=== PATIENT | male | born 1945 | race Caucasian/White ===

== ENCOUNTER 2017-07-28 15:25 | Emergency (ER) | payer MEDICARE, OTHER ==
[2017-07-28] MEDS ORDERED: Lidocaine 2% with EPINEPHrine 1:200,000 20 ML SDV INJECT ONE (15:30)
[2017-07-28] MEDS ORDERED: Diphtheria,Pertussis(Acell),Tetanus Vaccine 0.5 ML SDV IM ONE (15:36)
--- NOTE | 2017-07-28 15:36 | EDM.PDOC ---
ED HPI GENERAL MEDICAL PROBLEM - General Time Seen by Provider: 07/28/17 15:26 Source of Information: Reports: Patient History Limitations: Reports: No Limitations - History of Present Illness INITIAL COMMENTS - FREE TEXT/NARRATIVE: Patient presents with laceration to head that occurred 30 minutes ago. 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 It made him fall to the floor of the lift but no LOC, vomiting, vision changes, balance changes or other problems. He thinks his tetanus status is probably . ED ROS GENERAL - Review of Systems Review Of Systems: See Below Constitutional: Denies: Fever, Chills, Malaise, Weakness HEENT: Denies: Ear Discharge, Ear Pain, Hearing Loss, Vision Change Respiratory: Denies: Shortness of Breath, Wheezing, Cough Cardiovascular: Denies: Chest Pain, Lightheadedness, Syncope GI/Abdominal: Denies: Abdominal Pain, Diarrhea, Nausea, Vomiting : Reports: No Symptoms Skin: Denies: Cyanosis, Jaundice, Mottled, Pallor, Diaphoresis Neurological: Denies: Confusion, Dizziness, Headache, Seizure, Syncope, Trouble Speaking, Difficulty Walking Psychiatric: Denies: Agitation, Anxiety, Confusion Hematologic/Lymphatic: Denies: Easy Bleeding ED EXAM, HEAD INJURY - Physical Exam Exam: See Below Exam Limited By: No Limitations General Appearance: Alert, WD/WN, No Apparent Distress Head: Scalp Lacerations (left parietal 7 cm). No: Scalp Swelling, Scalp Abrasions, Scalp Ecchymosis, Scalp Hematoma, Pulido's Sign, Facial Ecchymosis, Facial Lacerations, Raccoon Eyes Nexus Criteria: No: Posterior, Midline Cervical Tenderness, Evidence of Intoxication, Altered Level of Consciousness, Focal Neurological Deficit, Painful Distraction Injuries Eyes: Bilateral Eye: EOMI, Normal Inspection, PERRL Ears: Normal External Exam, Normal Canal, Hearing Grossly Normal, Normal TMs Nose: Normal Inspection, No Blood Throat/Mouth: Normal Inspection, Normal Lips, Normal Voice, No Airway Compromise Neck: Non-Tender, Full Range of Motion, Normal Alignment, Normal Inspection Respiratory: No Respiratory Distress, Lungs Clear, Normal Breath Sounds, No Accessory Muscle Use Cardiovascular: Regular Rate, Rhythm, No Murmur GI/Abdominal Exam: Soft, Non-Tender Back Exam: No: CVA Tenderness (L), CVA Tenderness (R) Extremities: Normal Inspection, Normal Range of Motion, Non-Tender Neurologic: wood flooring specialist II-XII nml As Tested, No Motor/Sensory Deficits, Alert, Normal Mood/Affect, Oriented x 3 Skin: Normal Color, Warm/Dry - Keila Coma Score Best Eye Response (Keila): (4) Open Spontaneously Best Verbal Response (Keila): (5) Oriented Best Motor Response (Monson): (6) Obeys Commands ED LACERATION/WOUND & ANDRES PROC - Laceration/Wound Repair Right Lateral Head Lac/wound length in cm: 7 Appearance: Subcutaneous, Linear, Clean Distal NVT: Neuro & Vascular Intact Anesthetic Type: Local Local Anesthesia - Lidocaine (Xylocaine): 2% with EPI Local Anesthetic Volume: 4cc Skin Prep: Providone-Iodine (Betadine), Saline Saline irrigation (cc's): 100 Exploration/Debridement/Repair: Wound Explored, Explored to Base Closed with: [place] # of Sutures: 13 Suture Type: Interrupted, Simple Sterile Dressing Applied: Nurse Tetanus Status Addressed: Yes Complications: No Departure - Departure Time of Disposition: 16:06 Disposition: Home, Self-Care 01 Condition: Good Clinical Impression: Laceration of scalp without foreign body Qualifiers: Encounter type: initial encounter Qualified Code(s): S01.01XA - Laceration without foreign body of scalp, initial encounter - Discharge Information Additional Instructions: 1. You may shower and shampoo scalp carefully as desired. Avoid submerging head in water such as pool or tub until janusz are removed. 2. Recheck JASON with your PCP or return to ER if worsening or any sign of infection. 3. Follow up with your PCP in 10-12 days for staple removal and recheck. 4. You may take Tylenol or Ibuprofen as instructed for pain control.
[2017-07-28] MEDS ORDERED: Lidocaine 2% with EPINEPHrine 1:200,000 20 ML SDV ONE (15:42)
== END 2017-07-28 16:20 | disposition home or self-care (01) ==
LOC: KA.ED 15:25
DX: S01.01XA Laceration without foreign body of scalp, initial encounter (principal); Z23 Encounter for immunization; W26.8XXA Contact with other sharp object(s), not elsewhere classified, initial encounter; Y99.0 Civilian activity done for income or pay
CPT/HCPCS: 12002; 90471; 90715; 99282; 99283

== ENCOUNTER 2019-02-08 13:25 | Inpatient (IN) | payer MEDICARE, OTHER ==
[2019-02-08] MEDS ORDERED: Sodium Chloride 0.9% 10 ML Syringe FLUSH PRN ×2 (13:37→15:27)
--- NOTE | 2019-02-08 13:50 | EDM.PDOC ---
ED HPI GENERAL MEDICAL PROBLEM - General Chief Complaint: Cardiovascular Problem Stated Complaint: POSSIBLY NEW ONSET AFIB Time Seen by Provider: 02/08/19 13:30 Source of Information: Reports: Patient History Limitations: Reports: No Limitations - History of Present Illness INITIAL COMMENTS - FREE TEXT/NARRATIVE: 73 YO WM presents to ER from clinic with complaints of intermittent episodes of shortness of breath and new onst A fib on EKG. Pt reports he has been more tired over the last 4 days and last night was having trouble sleeping and feeling short of breath. Pt denies experiencing any chest pain, but did notice some mild palpitations. Pt denies any recent illnesses. No fever/chills, no nausea/vomiting, no diaphoresis or lightheadedness. Pt reports he was previously taking losartan/hctz and amlodipine but stopped almost 1 year ago after having normal blood pressure readings. Onset Date: 02/07/19 Duration: Day(s): (2) Location: Reports: Chest Severity: Mild Improves with: Reports: Rest Worsens with: Reports: Breathing Associated Symptoms: Reports: Shortness of Breath - Related Data Allergies Allergy/AdvReac Type Severity Reaction Status Date / Time No Known Drug Allergies Allergy Other Verified 02/08/19 13:37 Home Meds: Home Meds Ibuprofen [Advil] 800 mg PO BEDTIME 02/08/19 [History] Past Medical History HEENT History: Reports: Impaired Vision Cardiovascular History: Reports: Hypertension Musculoskeletal History: Reports: Arthritis Social & Family History - Family History Family Medical History: Noncontributory - Caffeine Use Caffeine Use: Reports: Coffee ED ROS GENERAL - Review of Systems Review Of Systems: See Below Constitutional: Reports: No Symptoms HEENT: Reports: No Symptoms Respiratory: Reports: Shortness of Breath. Denies: Cough Cardiovascular: Reports: Palpitations, PND. Denies: Chest Pain, Blood Pressure Problem, Dyspnea on Exertion, Lightheadedness, Orthopnea, Syncope Endocrine: Reports: No Symptoms GI/Abdominal: Reports: No Symptoms : Reports: No Symptoms Musculoskeletal: Reports: No Symptoms Skin: Reports: No Symptoms Neurological: Reports: No Symptoms Psychiatric: Reports: No Symptoms Hematologic/Lymphatic: Reports: No Symptoms Immunologic: Reports: No Symptoms ED EXAM, GENERAL - Physical Exam Exam: See Below Exam Limited By: No Limitations General Appearance: Alert, WD/WN, No Apparent Distress Head: Atraumatic, Normocephalic Neck: Normal Inspection, Supple, Non-Tender, Full Range of Motion Respiratory/Chest: No Respiratory Distress, Lungs Clear, Normal Breath Sounds, No Accessory Muscle Use, Chest Non-Tender Cardiovascular: Normal Peripheral Pulses, No Edema, No Gallop, No JVD, No Murmur , No Rub, Irregularly Irregular GI/Abdominal: Normal Bowel Sounds, Soft, Non-Tender, No Organomegaly, No Distention, No Abnormal Bruit, No Mass Back Exam: Normal Inspection, Full Range of Motion, NT Extremities: Normal Inspection, Normal Range of Motion, Non-Tender, Normal Capillary Refill, No Pedal Edema Neurological: Alert, Oriented, CN II-XII Intact, Normal Cognition, Normal Gait, Normal Reflexes, No Motor/Sensory Deficits Psychiatric: Normal Affect, Normal Mood Skin Exam: Warm, Dry, Intact, Normal Color, No Rash Lymphatic: No Adenopathy EKG INTERPRETATION EKG Date: 02/08/19 Time: 13:34 Rhythm: A-Fib Rate (Beats/Min): 79 [place]: Normal P-Wave: Absent QRS: Normal ST-T: Normal QT: Normal Course - Vital Signs Last Recorded V/S: Last Vital Signs Temp 36.4 C 02/08/19 13:31 Pulse 94 02/08/19 13:31 Resp 19 02/08/19 13:31 BP 167/106 H 02/08/19 13:31 Pulse Ox 95 02/08/19 13:31 - Orders/Labs/Meds Orders: Active Orders 24 hr Category Date Time Status Cardiac Monitoring [RC] . DIRECTED Care 02/08/19 13:37 Ordered EKG Documentation Completion [RC] ASDIRECTED Care 02/08/19 13:38 Ordered Peripheral IV Care [RC] . DIRECTED Care 02/08/19 13:38 Ordered Sodium Chloride 0.9% [Saline Flush] Med 02/08/19 13:37 Ordered 10 ml FLUSH Q8HR PRN Peripheral IV Insertion Adult [OM.PC] Routine Oth 02/08/19 13:37 Ordered EKG 12 Lead [EK] Routine Ther 02/08/19 13:37 Ordered Medication Orders Sodium Chloride (Saline Flush) 10 ml FLUSH Q8HR PRN PRN Reason: keep vein open Labs: Laboratory Tests 02/08/19 02/08/19 Range/Units 13:40 13:40 WBC 6.54 (5.00-10.00) 10^3/uL RBC 4.47 L (4.50-6.00) 10^6/uL Hgb 14.0 (13.0-17.0) g/dL Hct 41.1 (40.0-52.0) % MCV 91.9 (82.0-92.0) fL MCH 31.3 H (27.0-31.0) pg MCHC 34.1 (32.0-36.0) g/dL RDW 13.0 (11.5-14.5) % Plt Count 221 (150-400) 10^3/uL MPV 9.2 (7.4-10.4) fL Immature Gran % (Auto) 0.3 (0.0-5.0) % Neut % (Auto) 79.8 H (50.0-70.0) % Lymph % (Auto) 12.1 L (20.0-40.0) % Person % (Auto) 6.7 (2.0-8.0) % Eos % (Auto) 0.6 L (1.0-3.0) % Baso % (Auto) 0.5 (0.0-1.0) % Immature Gran # (Auto) 0.02 (0.00-0.50) 10^3/uL Neut # (Auto) 5.22 (2.50-7.00) 10^3/uL Lymph # (Auto) 0.79 L (1.00-4.00) 10^3/uL Person # (Auto) 0.44 (0.10-0.80) 10^3/uL Eos # (Auto) 0.04 L (0.10-0.30) 10^3/uL Baso # (Auto) 0.03 (0.00-0.10) 10^3/uL Sodium 143 (136-145) mmol/L Potassium 4.0 (3.3-5.3) mmol/L Chloride 107 (98-115) mmol/L Carbon Dioxide 24.2 (21.0-32.0) mmol/L Anion Gap 15.8 H (5-15) mmol/L BUN 15 (6-25) mg/dL Creatinine 0.95 (0.51-1.17) mg/dL Est Cr Clr Drug Dosing 79.43 mL/min Estimated GFR (MDRD) > 60 mL/min Glucose 103 H (75 - 99) mg/dL Calcium 9.3 (8.7-10.3) mg/dL Total Bilirubin 0.7 (0.2-1.0) mg/dL AST 25 (15-37) U/L ALT 49 (12-78) U/L Alkaline Phosphatase 92 (46-116) IU/L Creatine Kinase 126 (26-276) U/L CK-MB (CK-2) 5.20 H* (0.00-4.30) ng/mL Troponin I 0.08 H* (0.00-0.070) ng/mL B-Natriuretic Peptide 914 H (0-100) pg/mL Total Protein 6.5 (6.4-8.2) g/dL Albumin 3.54 (3.00-4.80) g/dL Meds: Medications Generic Name Dose Route Start Last Admin Trade Name Freq PRN Reason Stop Dose Admin Sodium Chloride 10 ml 02/08/19 13:37 Saline Flush FLUSH Q8HR PRN keep vein open Discontinued Medications Generic Name Dose Route Start Last Admin Trade Name Freq PRN Reason Stop Dose Admin Aspirin 324 mg 02/08/19 14:27 Aspirin PO 02/08/19 14:28 ONETIME ONE Furosemide 40 mg 02/08/19 14:27 Lasix IVPUSH 02/08/19 14:28 NOW ONE Nitroglycerin 1 gm 02/08/19 14:27 Nitro-Bid 2% TOP 02/08/19 14:28 ONETIME ONE - Radiology Interpretation Free Text/Narrative:: CXR- mild CHF, CM Departure - Departure Time of Disposition: 15:00 Disposition: Admitted As Inpatient 67 Condition: Fair Clinical Impression: New onset atrial fibrillation, Elevated troponin I level Congestive heart failure (CHF) Qualifiers: Heart failure chronicity: acute Referrals: PCP,Unknown [Ordering Only Provider] - Forms: ED Department Discharge - My Orders Last 24 Hours: My Active Orders 02/08/19 13:37 Cardiac Monitoring [RC] . DIRECTED Sodium Chloride 0.9% [Saline Flush] 10 ml FLUSH Q8HR PRN Peripheral IV Insertion Adult [OM.PC] Routine EKG 12 Lead [EK] Routine 02/08/19 13:38 EKG Documentation Completion [RC] ASDIRECTED Peripheral IV Care [RC] . DIRECTED - Assessment/Plan Last 24 Hours: My Active Orders 02/08/19 13:37 Cardiac Monitoring [RC] . DIRECTED Sodium Chloride 0.9% [Saline Flush] 10 ml FLUSH Q8HR PRN Peripheral IV Insertion Adult [OM.PC] Routine EKG 12 Lead [EK] Routine 02/08/19 13:38 EKG Documentation Completion [RC] ASDIRECTED Peripheral IV Care [RC] . DIRECTED Assessment:: 1. New onset Atrial Fibrillation 2. Mild CHF Plan: 1. admit to medicine- [facility] ERVIN 2. Nitro/ASA 3. lasix 40mg IV 4. serial Trop I Q4 x 3
--- NOTE | 2019-02-08 14:14 | CR ---
[id number] RAD/RAD Chest PA And Lateral EXAM: FRONTAL AND LATERAL CHEST INDICATION: RULE OUT CONGESTIVE HEART FAILURE. COMPARISON: None. DISCUSSION: Mild cardiomegaly with borderline central vascular congestion and small pleural effusions compatible with congestive heart failure. Partial atelectasis of the lower lobes with no definite infiltrates. Partially imaged fixation hardware in the left humerus. Vertebral compression fracture at the thoracolumbar junction. IMPRESSION: 1. Mild congestive heart failure. Loi Orr MD 02/08/19 [id number] Thank you for allowing us to participate in the care of your patient.
[2019-02-08 14:19] LABS: ANION GAP 15.8 mmol/L (5-15); CHLORIDE,CL 107 mmol/L (98-115); SODIUM,NA 143 mmol/L (136-145)
[2019-02-08] MEDS ORDERED: Aspirin 81 MG Tab.Chew PO ONE (14:27)
[2019-02-08] MEDS ORDERED: Nitroglycerin 2% Oint 1 GM UD Packet TOP ONE (14:27)
[2019-02-08] MEDS ORDERED: Furosemide 40 MG/4 ML VIAL IVPUSH ONE (14:27)
[2019-02-08] MEDS ORDERED: Metoprolol Tartrate 50 MG Tab PO ONE (15:59)
[2019-02-08] MEDS ORDERED: Metoprolol Tartrate 5 MG/5 ML SDV IVPUSH ONE ×4 (16:05→16:24)
[2019-02-08] MEDS ORDERED: Enoxaparin 100 MG/1 ML Syringe SUBCUT SCH (17:00)
[2019-02-08] MEDS: Isosorbide Mononitrate 30 MG Tab.ER PO SCH (17:10)
[2019-02-08] MEDS: Rivaroxaban 10 MG Tab PO SCH (18:12)
[2019-02-08] MEDS: Metoprolol Tartrate 50 MG Tab PO SCH (21:27)
[2019-02-09 08:04] LABS: ANION GAP 15.8 mmol/L (5-15); CHLORIDE,CL 105 mmol/L (98-115); SODIUM,NA 142 mmol/L (136-145)
[2019-02-09] MEDS: Isosorbide Mononitrate 30 MG Tab.ER PO SCH (08:46)
[2019-02-09] MEDS: Metoprolol Tartrate 50 MG Tab PO SCH ×2 (08:47→21:00)
--- NOTE | 2019-02-09 10:00 | PCM.HP.2 ---
H&P History of Present Illness - General Date of Service: 02/09/19 Admit Problem/Dx: Admission Diagnosis/Problem Admission Diagnosis/Problem Congestive heart failure Source of Information: Patient, Old Records, Provider, RN History Limitations: Reports: No Limitations - History of Present Illness Initial Comments - Free Text/Narative: 73 gentleman was admitted yesterday into inpatient status due to new onset atrial fibrillation with dyspnea. She was seen and evaluated [facility] by Lexy santana when he came in due to shortness of breath when lying down/ PND evening. Patient does have a history of hypertension had been on triple BP meds however has slowly been weaned off over this past year due to normotensive levels. Pt reports he has been more tired over the last 4 days and last night was having trouble sleeping and feeling short of breath. ED evaluation he denied any chest pain however does admit to some mild palpitations especially into his anterior neck region. No recent illness. - Related Data Allergies/Adverse Reactions: Allergies Allergy/AdvReac Type Severity Reaction Status Date / Time No Known Drug Allergies Allergy Other Verified 02/08/19 13:37 Home Medications: Home Meds Ibuprofen [Advil] 800 mg PO BEDTIME 02/08/19 [History] Past Medical History HEENT History: Reports: Impaired Vision Cardiovascular History: Reports: High Cholesterol, Hypertension Respiratory History: Reports: None Gastrointestinal History: Reports: None Genitourinary History: Reports: None Musculoskeletal History: Reports: Arthritis Neurological History: Reports: None Psychiatric History: Reports: None Endocrine/Metabolic History: Reports: None Hematologic History: Reports: Anesthesia Reaction, Other (See Below) Other Hematologic History: Difficulty arousing after anesthesia Immunologic History: Reports: None Oncologic (Cancer) History: Reports: None Dermatologic History: Reports: Other (See Below) Other Dermatologic History: Lower back rash - Infectious Disease History Infectious Disease History: Reports: None - Past Surgical History Head Surgeries/Procedures: Reports: None HEENT Surgical History: Reports: None Cardiovascular Surgical History: Reports: None GI Surgical History: Reports: Appendectomy, Cholecystectomy, Hernia, Inguinal Male Surgical History: Reports: None Endocrine Surgical History: Reports: None Other Musculoskeletal Surgeries/Procedures:: wrist and left arm surgery (fell 14 feet) Oncologic Surgical History: Reports: None Dermatological Surgical History: Reports: Skin Biopsy Social & Family History - Tobacco Use Smoking Status *Q: Never Smoker Second Hand Smoke Exposure: No - Caffeine Use Caffeine Use: Reports: Coffee - Alcohol Use Date of Last Drink: 02/07/19 - Recreational Drug Use Recreational Drug Use: No H&P Review of Systems - Review of Systems: Review Of Systems: See Below General: Reports: No Symptoms HEENT: Reports: No Symptoms Pulmonary: Reports: Shortness of Breath. Denies: Wheezing, Pleuritic Chest Pain , Cough, Sputum Cardiovascular: Reports: Palpitations, Dyspnea on Exertion Gastrointestinal: Reports: No Symptoms Genitourinary: Reports: No Symptoms Musculoskeletal: Reports: No Symptoms Skin: Reports: No Symptoms Psychiatric: Reports: No Symptoms Neurological: Reports: No Symptoms Hematologic/Lymphatic: Reports: No Symptoms Immunologic: Reports: No Symptoms Exam - Exam Exam: See Below - Vital Signs Vital Signs: Last Vital Signs Temp 98.6 F 02/09/19 06:54 Pulse 76 02/09/19 08:47 Resp 20 02/09/19 06:54 BP 125/70 02/09/19 08:47 Pulse Ox 95 02/09/19 06:54 Weight: 179 lb 3 oz - Exam Quality Assessment: Supplemental Oxygen, DVT Prophylaxis (cross covered) General: Alert, Oriented, 4 HEENT: Conjunctiva Clear, EACs Clear, EOMI, Hearing Intact, Mucosa Moist & [place] , Nares Patent, Normal Nasal Septum, Posterior Pharynx Clear, TMs Clear Neck: Supple, Trachea Midline, 2 Lungs: Clear to Auscultation, Normal Respiratory Effort Cardiovascular: Regular Rate, Irregular Rhythm. No: Bradycardia, Tachycardia GI/Abdominal Exam: Normal Bowel Sounds, Soft, Non-Tender, No Organomegaly, No Distention, No Abnormal Bruit, No Mass, Pelvis Stable (Male) Exam: No: Deferred Rectal (Males) Exam: No: Deferred Back Exam: No: CVA Tenderness (L) Extremities: No Pedal Edema Peripheral Pulses: 2+: Radial (R), Femoral (L) Skin: Warm, Dry, Intact Neurological: Cranial Nerves Intact, Reflexes Equal Bilateral Neuro Extensive - Mental Status: Alert, Oriented x3, Normal Mood/Affect, Normal Cognition Neuro Extensive - Motor, Sensory, Reflexes: CN II-XII Intact, Normal Gait, Normal Reflexes Psychiatric: Alert, Normal Affect, Normal Mood - Patient Data Lab Results Last 24 hrs: Laboratory Results - last 24 hr 11/13/19 11/13/19 11/13/19 Range/Units 13:40 13:40 19:57 WBC 6.54 (5.00-10.00) 10^3/uL RBC 4.47 L (4.50-6.00) 10^6/uL Hgb 14.0 (13.0-17.0) g/dL Hct 41.1 (40.0-52.0) % MCV 91.9 (82.0-92.0) fL MCH 31.3 H (27.0-31.0) pg MCHC 34.1 (32.0-36.0) g/dL RDW 13.0 (11.5-14.5) % Plt Count 221 (150-400) 10^3/uL MPV 9.2 (7.4-10.4) fL Immature Gran % (Auto) 0.3 (0.0-5.0) % Neut % (Auto) 79.8 H (50.0-70.0) % Lymph % (Auto) 12.1 L (20.0-40.0) % [place] % (Auto) 6.7 (2.0-8.0) % Eos % (Auto) 0.6 L (1.0-3.0) % Baso % (Auto) 0.5 (0.0-1.0) % Immature Gran # (Auto) 0.02 (0.00-0.50) 10^3/uL Neut # (Auto) 5.22 (2.50-7.00) 10^3/uL Lymph # (Auto) 0.79 L (1.00-4.00) 10^3/uL [place] # (Auto) 0.44 (0.10-0.80) 10^3/uL Eos # (Auto) 0.04 L (0.10-0.30) 10^3/uL Baso # (Auto) 0.03 (0.00-0.10) 10^3/uL Sodium 143 (136-145) mmol/L Potassium 4.0 (3.3-5.3) mmol/L Chloride 107 (98-115) mmol/L Carbon Dioxide 24.2 (21.0-32.0) mmol/L Anion Gap 15.8 H (5-15) mmol/L BUN 15 (6-25) mg/dL Creatinine 0.95 (0.51-1.17) mg/dL Est Cr Clr Drug Dosing 79.43 mL/min Estimated GFR (MDRD) > 60 mL/min Glucose 103 H (75 - 99) mg/dL Calcium 9.3 (8.7-10.3) mg/dL Total Bilirubin 0.7 (0.2-1.0) mg/dL AST 25 (15-37) U/L ALT 49 (12-78) U/L Alkaline Phosphatase 92 (46-116) IU/L Creatine Kinase 126 (26-276) U/L CK-MB (CK-2) 5.20 H* (0.00-4.30) ng/mL Troponin I 0.08 H* 0.10 H* (0.00-0.070) ng/mL B-Natriuretic Peptide 914 H (0-100) pg/mL Total Protein 6.5 (6.4-8.2) g/dL Albumin 3.54 (3.00-4.80) g/dL 02/09/19 Range/Units 07:25 WBC (5.00-10.00) 10^3/uL RBC (4.50-6.00) 10^6/uL Hgb (13.0-17.0) g/dL Hct (40.0-52.0) % MCV (82.0-92.0) fL MCH (27.0-31.0) pg MCHC (32.0-36.0) g/dL RDW (11.5-14.5) % Plt Count (150-400) 10^3/uL MPV (7.4-10.4) fL Immature Gran % (Auto) (0.0-5.0) % Neut % (Auto) (50.0-70.0) % Lymph % (Auto) (20.0-40.0) % [place] % (Auto) (2.0-8.0) % Eos % (Auto) (1.0-3.0) % Baso % (Auto) (0.0-1.0) % Immature Gran # (Auto) (0.00-0.50) 10^3/uL Neut # (Auto) (2.50-7.00) 10^3/uL Lymph # (Auto) (1.00-4.00) 10^3/uL [place] # (Auto) (0.10-0.80) 10^3/uL Eos # (Auto) (0.10-0.30) 10^3/uL Baso # (Auto) (0.00-0.10) 10^3/uL Sodium 142 (136-145) mmol/L Potassium 4.2 (3.3-5.3) mmol/L Chloride 105 (98-115) mmol/L Carbon Dioxide 25.4 (21.0-32.0) mmol/L Anion Gap 15.8 H (5-15) mmol/L BUN 15 (6-25) mg/dL Creatinine 1.00 (0.51-1.17) mg/dL Est Cr Clr Drug Dosing 75.46 mL/min Estimated GFR (MDRD) > 60 mL/min Glucose 108 H (75 - 99) mg/dL Calcium 9.3 (8.7-10.3) mg/dL Total Bilirubin (0.2-1.0) mg/dL AST (15-37) U/L ALT (12-78) U/L Alkaline Phosphatase (46-116) IU/L Creatine Kinase (26-276) U/L CK-MB (CK-2) (0.00-4.30) ng/mL Troponin I 0.08 H* (0.00-0.070) ng/mL B-Natriuretic Peptide (0-100) pg/mL Total Protein (6.4-8.2) g/dL Albumin (3.00-4.80) g/dL Result Diagrams: 02/08/19 13:40 02/09/19 07:25 Problem List Initiated/Reviewed/Updated: Yes Orders Last 24hrs: Active Orders 24 hr Category Date Time Status Patient Status [ADT] Routine ADT 02/08/19 15:28 Active Patient Status [ADT] Routine ADT 02/08/19 17:27 Active Cardiac Monitoring [RC] 0300,0700,1100,1500,1900,2300 Care 02/08/19 13:37 Active Cardiac Monitoring [RC] CONTINUOUS Care 02/08/19 17:27 Inactive Intake and Output [RC] 1400,2200,0600 Care 02/08/19 15:31 Active Notify Provider Vital Signs [RC] .PRN Care 02/08/19 15:31 Active Oxygen Therapy [RC] PRN Care 02/08/19 15:28 Active Oxygen Therapy [RC] PRN Care 02/08/19 17:27 Inactive Up ad Perla [RC] ASDIRECTED Care 02/08/19 17:27 Active Up to Chair [RC] ASDIRECTED Care 02/08/19 15:27 Active VTE/DVT Education [RC] PER UNIT ROUTINE Care 02/08/19 15:28 Active VTE/DVT Education [RC] PER UNIT ROUTINE Care 02/08/19 17:27 Inactive Vital Signs [RC] 0300,0700,1100,1500,1900,2300 Care 02/08/19 15:28 Active Vital Signs [RC] Q4H Care 02/08/19 17:27 Inactive Isosorbide Mononitrate [Imdur] Med 02/08/19 16:15 Active 30 mg PO DAILY Metoprolol Tartrate [Lopressor] Med 02/08/19 21:00 Active 50 mg PO BID Rivaroxaban [Xarelto] Med 02/08/19 18:00 Active 20 mg PO 1800 Sodium Chloride 0.9% [Saline Flush] Med 02/08/19 15:27 Active 10 ml FLUSH Q8HR PRN Peripheral IV Insertion Adult [OM.PC] Routine Oth 02/08/19 13:37 Ordered Saline Lock Insert [OM.PC] Routine Oth 02/08/19 15:27 Ordered Resuscitation Status Routine Resus Stat 02/08/19 15:04 Ordered EKG 12 Lead [EK] Routine Ther 02/08/19 13:37 Stop Req Medication Orders Isosorbide Mononitrate (Imdur) 30 mg PO DAILY [facility] Last Admin: 02/09/19 08:46 Dose: 30 mg Admin: 02/08/19 17:10 Dose: 30 mg Metoprolol Tartrate (Lopressor) 50 mg PO BID [facility] Last Admin: 02/09/19 08:47 Dose: 50 mg Admin: 02/08/19 21:27 Dose: 50 mg Rivaroxaban (Xarelto) 20 mg PO 1800 [facility] Last Admin: 02/08/19 18:12 Dose: 20 mg Sodium Chloride (Saline Flush) 10 ml FLUSH Q8HR PRN PRN Reason: keep vein open Assessment/Plan Comment:: History of present illness 73 gentleman was admitted yesterday into inpatient status due to new onset atrial fibrillation with dyspnea. She was seen and evaluated [facility] by Lexy santana when he came in due to shortness of breath when lying down/ PND evening. Patient does have a history of hypertension had been on triple BP meds however has slowly been weaned off over this past year due to normotensive levels. Pt reports he has been more tired over the last 4 days and last night was having trouble sleeping and feeling short of breath. ED evaluation he denied any chest pain however does admit to some mild palpitations especially into his anterior neck region. No recent illness. ED evaluation/pertinent findings Atrial fibrillation, regular rate Slightly elevated cardio biomarkers Chest x-ray, mild CHF picture ASA Lasix BP; 167\106 BNP >900, Hospital course to date Very soon after admission nurses reported elevated blood pressure 167/106, metoprolol tartrate IV titrated doses given, factor X A inhibitor given, Imdur, Primary hospital problems --Atrial fibrillation, new onset, [id number], CVR, Factor Xa, rate control strategy for now, Cont with Metoprolol tartrate 50mg BID for now, may consider digoxin after ECHO. DC NSAIDS --NSTEMI, type 2/ischemic demand, CRUZ 3/9, CAD pretest probability moderate. Aspirin until discharge --Heart failure, clinical signs, op ECHO, start low dose ACEI today, ECHO as o/p , lasix today x 1. Imdur --HTN, contributory Disposition, overall plan, discharge planning --Patient meets continue inpatient stay secondary to medication education, adjustments, telemetry monitoring --traffic monitor specialist for breakthrough rate --pt/INR --Oral metoprolol tartrate --DC NSAIDS, add Tylenol arthritis --add low-dose CHACHO inhibitor --Preload reduction, Imdur --Lasix today --Patient teaching, medications. --Assess pneumococcal/influenza vaccination status --Anticipate discharge in a.m. if ongoing hemodynamic stability. - Mortality Measure Prognosis:: Good
[2019-02-09] MEDS ORDERED: Acetaminophen 650 MG Tab.ER PO PRN (10:38)
[2019-02-09] MEDS: Lisinopril 5 MG Tab PO SCH (11:03)
[2019-02-09] MEDS: Furosemide 20 MG Tab PO SCH (11:03)
[2019-02-09] MEDS: Aspirin 81 MG Tab.EC PO SCH (11:03)
[2019-02-09] MEDS: Rivaroxaban 10 MG Tab PO SCH (17:46)
[2019-02-10] MEDS: Lisinopril 5 MG Tab PO SCH (09:05)
[2019-02-10] MEDS: Aspirin 81 MG Tab.EC PO SCH (09:05)
[2019-02-10] MEDS: Furosemide 20 MG Tab PO SCH (09:05)
[2019-02-10] MEDS: Metoprolol Tartrate 50 MG Tab PO SCH (09:09)
[2019-02-10] MEDS: Isosorbide Mononitrate 30 MG Tab.ER PO SCH (09:09)
[2019-02-10 10:50] LABS: ANION GAP 15.7 mmol/L (5-15); CHLORIDE,CL 106 mmol/L (98-115); SODIUM,NA 142 mmol/L (136-145)
--- NOTE | 2019-02-10 10:56 | PCM.DCSUM1 ---
Discharge Summary - Discharge Data Discharge Date: 02/10/19 Discharge Disposition: Home, Self-Care 01 Condition: Good - Referral to Home Health Primary Care Physician: Malena Ross NP - Patient Instructions Diet: Heart Healthy Diet Activity: As Tolerated, Rest and Relax Today Showering/Bathing: May Shower Other/Special Instructions: Weigh yourself at home every day. If you notice an increase in weight of 2-3 pounds in 2 days please notify your primary care provider. Please obtain a blood pressure cuff for at home if you're able. If you feel lightheaded or dizzy, take your blood pressure and write this down. If the blood pressure is less than 100 on the top, don't take the lasix (furosemide ) for the day. You will be set up for an outpatient ECHO (ultrasound of the heart) at [facility]. You have been referred to the [facility] anticoagulation clinic to help monitor the use of xarelto (rivaroxaban). DO NOT USE NSAIDs (this includes aleve, ibuprofen, motrin, naproxen) while on xarelto. You may use tylenol as needed for pain. No more than 3000 mg per day. - Discharge Plan *PRESCRIPTION DRUG MONITORING PROGRAM REVIEWED*: Not Applicable *COPY OF PRESCRIPTION DRUG MONITORING REPORT IN PATIENT JACINTA: Not Applicable Prescriptions/Med Rec: Furosemide [Lasix] 20 mg PO DAILY #30 tablet Lisinopril [Prinivil] 5 mg PO DAILY #30 tablet Metoprolol Tartrate [Lopressor] 50 mg PO BID #60 tablet Rivaroxaban [Xarelto] 20 mg PO 1800 #90 tablet Home Medications: Home Meds Furosemide [Lasix] 20 mg PO DAILY #30 tablet 02/10/19 [Rx] Lisinopril [Prinivil] 5 mg PO DAILY #30 tablet 02/10/19 [Rx] Metoprolol Tartrate [Lopressor] 50 mg PO BID #60 tablet 02/10/19 [Rx] Rivaroxaban [Xarelto] 20 mg PO 1800 #90 tablet 02/10/19 [Rx] Referrals: Malena Ross, MANAGER DEPARTMENT [Primary Care Provider] - 02/13/19 2:00 pm (ECHO appointment for February 20 at 1100am at the [facility]) - Discharge Summary/Plan Comment DC Time >30 min.: Yes Discharge Summary/Plan Comment: Date of admission: 02/08/19 Date of discharge: 02/10/19 Admitting diagnosis: Primary: New onset atrial fibrillation, Type 2 NSTEMI, Acute heart failure ( unspecified), Essential HTN Secondary: GERD, OA of multiple sites Final diagnosis: Primary: New onset atrial fibrillation, Type 2 NSTEMI, Acute heart failure ( unspecified), Essential HTN Secondary: GERD, OA of multiple sites Procedures performed: None Brief History: This is a 73 yo male who initially presented to the [facility] [place] with concerns of dyspnea while laying down the night prior. Patient was noted to have new onset atrial fibrillation on EKG along with significant ischemic changes in leads V4 and V5 and QTc prolongation of 504 ms. Given the limited diagnostics available in outlying clinic patient was transferred to the ED. ED work-up revealed mild CHF on CXR, troponin 0.08, BNP 914, atrial fibrillation with regular rate on EKG, BP 167/106. He was subsequently admitted for further treatment and monitoring. Hospital Course: Shortly after admission to the inpatient floor, patient required IV lopressor to control his blood pressure. He was also started on factor XA inhibitor, lasix, ACEI and Imdur SR. He was monitored with telemetry. Pulse ranged from 55 bpm to low 100s with improvement noted in blood pressure. Patient was provided with provider and nurse led education about new diagnoses of atrial fibrillation and CHF along with information on the new medications. Labs (02/09/19): PT 11.4 INR 1.1 Troponin 0.08 (02/10/19): TSH 1.34 Mg 1.8 K 4.1 Na 142 Creatinine 0.96 New medications on discharge: -Xarelto 20 mg po at 1800 -Lopressor 50 mg po BID -Lisinopril 5 mg po daily -Lasix 20 mg po daily (hold if systolic BP 100 or less) -Tylenol arthritis 650 mg po q8h PRN New changes to home medications on discharge: -DC NSAIDs Regular home medications on discharge: None Condition, Treatment, & Final Disposition: The patient is in stable condition at the time of discharge. He will be discharged home with his and sister. He will have close follow-up in the clinic with DAVID Cordero on 02/13/19 at which time he should have re-evaluation of his electrolytes given the new start of lasix. He will be scheduled for an outpatient ECHO for further evaluation. He was referred to the [facility] for help in monitoring his Xarelto. - General Info Date of Service: 02/10/19 Functional Status: Reports: Tolerating Diet, Ambulating, Urinating. Denies: New Symptoms - Review of Systems General: Reports: Fatigue. Denies: Fever, Chills HEENT: Reports: Glasses. Denies: Headaches Pulmonary: Reports: Shortness of Breath (with laying down/exertion). Denies: Cough Cardiovascular: Reports: Dyspnea on Exertion, PND. Denies: Chest Pain, Palpitations, Edema, Lightheadedness Genitourinary: Reports: Other (bruised area to right testicle that is painful) Neurological: Denies: Dizziness, Headache Psychiatric: Reports: No Symptoms - Patient Data Vitals - Most Recent: Last Vital Signs Temp 96.8 F 02/10/19 06:19 Pulse 89 02/10/19 09:09 Resp 18 02/10/19 06:19 BP 150/82 H 02/10/19 09:09 Pulse Ox 95 02/10/19 06:19 Weight - Most Recent: 176 lb 4 oz I&O - Last 24 hours: Intake & Output 02/09/19 02/10/19 02/10/19 22:59 06:59 14:59 Intake Total 350 0 Output Total 1200 Balance 350 -1200 Lab Results - Last 24 hrs: Laboratory Results - last 24 hr 02/09/19 02/10/19 02/10/19 Range/Units 07:25 08:30 08:30 PT 11.4 (8.9-11.4) SEC INR 1.1 (0.9-1.1) Magnesium 1.8 (1.8-2.4) mg/dL TSH, Ultra Sensitive 1.340 (0.340-4.820) uIU/mL Med Orders - Current: Current Medications Acetaminophen (Tylenol Arthritis Pain) 1,300 mg PO Q8H PRN PRN Reason: Pain Last Admin: 02/09/19 12:38 Dose: 1,300 mg Aspirin (Halfprin) 81 mg PO WITHBREAKFAST KEN Last Admin: 02/10/19 09:05 Dose: 81 mg Furosemide (Lasix) 20 mg PO DAILY KEN Last Admin: 02/10/19 09:05 Dose: 20 mg Isosorbide Mononitrate (Imdur) 30 mg PO DAILY [facility] Last Admin: 02/10/19 09:09 Dose: 30 mg Lisinopril (Prinivil) 5 mg PO DAILY [facility] Last Admin: 02/10/19 09:05 Dose: 5 mg Metoprolol Tartrate (Lopressor) 50 mg PO BID [facility] Last Admin: 02/10/19 09:09 Dose: 50 mg Rivaroxaban (Xarelto) 20 mg PO 1800 [facility] Last Admin: 02/09/19 17:46 Dose: 20 mg Sodium Chloride (Saline Flush) 10 ml FLUSH Q8HR PRN PRN Reason: keep vein open Discontinued Medications Aspirin (Aspirin) 324 mg PO ONETIME ONE Stop: 02/08/19 14:28 Last Admin: 02/08/19 14:46 Dose: 324 mg Enoxaparin Sodium (Lovenox) 80 mg SUBCUT Q12H [facility] Furosemide (Lasix) 40 mg IVPUSH NOW ONE Stop: 02/08/19 14:28 Last Admin: 02/08/19 14:49 Dose: 40 mg Metoprolol Tartrate (Lopressor) 50 mg PO ONETIME ONE Stop: 02/08/19 16:00 Last Admin: 02/08/19 16:57 Dose: 50 mg Metoprolol Tartrate (Lopressor) 5 mg IVPUSH ONETIME ONE Stop: 02/08/19 16:11 Metoprolol Tartrate (Lopressor) 5 mg IVPUSH ONETIME ONE Stop: 02/08/19 16:18 Last Admin: 02/08/19 16:38 Dose: 5 mg Metoprolol Tartrate (Lopressor) 5 mg IVPUSH ONETIME ONE Stop: 02/08/19 16:06 Last Admin: 02/08/19 16:20 Dose: 5 mg Metoprolol Tartrate (Lopressor) 5 mg IVPUSH ONETIME ONE Stop: 02/08/19 16:25 Last Admin: 02/08/19 16:47 Dose: 5 mg Nitroglycerin (Nitro-Bid 2%) 1 gm TOP ONETIME ONE Stop: 02/08/19 14:28 Last Admin: 02/08/19 14:47 Dose: 1 gm Sodium Chloride (Saline Flush) 10 ml FLUSH Q8HR PRN PRN Reason: keep vein open Last Admin: 02/08/19 14:53 Dose: 10 ml - Exam Quality Assessment: Reports: DVT Prophylaxis (on xarelto/aspirin). Denies: Supplemental Oxygen, Urine Catheter General: Reports: Alert, Oriented, Cooperative, No Acute Distress Lungs: Reports: Clear to Auscultation, Normal Respiratory Effort Cardiovascular: Reports: Regular Rate, No Murmurs, Irregular Rhythm (Male) Exam: Testicular Tenderness (R) (faint pen tip sized ecchymotic area to right testicle, tender, no erythema/edema). No: Penile Lesions, Scrotal Swelling, Testicular Mass, Testicular Tenderness (L) Extremities: Other (trace edema to BLE) Skin: Reports: Warm, Dry, Intact Neurological: Reports: Normal Speech Psy/Mental Status: Reports: Alert, Normal Affect, Normal Mood
== END 2019-02-10 11:40 | disposition home or self-care (01) | DRG 282 ==
LOC: KA.ED 13:25 → KA.MS 15:28
PROVIDERS: ADMIT Nurse Practitioner Family; ATTEND Nurse Practitioner Family
DX: I48.91 Unspecified atrial fibrillation (principal); I21.A1 Myocardial infarction type 2; I50.9 Heart failure, unspecified; R79.89 Other specified abnormal findings of blood chemistry; H54.7 Unspecified visual loss; I11.0 Hypertensive heart disease with heart failure; R06.02 Shortness of breath; K21.9 Gastro-esophageal reflux disease without esophagitis; E78.00 Pure hypercholesterolemia, unspecified; M19.90 Unspecified osteoarthritis, unspecified site; Z90.49 Acquired absence of other specified parts of digestive tract; Z79.899 Other long term (current) drug therapy
CPT/HCPCS: 71046; 80053; 82550; 82553; 83880; 84484; 85025; 96374; 99285; A9270 ×2; J1940; 36415; 80048; 83735; 84443; 85610; 93005; 99284; J3490

== ENCOUNTER 2023-01-20 19:41 | Observation (INO) | payer MEDICARE, OTHER ==
[2023-01-20] MEDS ORDERED: Sodium Chloride 0.9% 1,000 ML ONE (19:56)
[2023-01-20] MEDS ORDERED: Metoprolol Tartrate 5 MG/5 ML SDV ONE (19:56)
[2023-01-20] MEDS ORDERED: Sodium Chloride 0.9% 10 ML Syringe FLUSH PRN (20:02)
[2023-01-20] MEDS ORDERED: Diltiazem 25 MG/5 ML SDV IVPUSH ONE ×2 (20:02→20:08)
[2023-01-20] MEDS ORDERED: Sodium Chloride 0.9% 1,000 ML IV SCH (20:15)
[2023-01-20 20:16] LABS: BASOPHILS ABSOLUTE AUTO 0.03 10^3/uL (0.00-0.10); BASOPHILS PERCENT AUTO 0.3 % (0.0-1.0); EOSINOPHILS ABSOLUTE AUTO 0.12 10^3/uL (0.10-0.30); EOSINOPHILS PERCENT AUTO 1.4 % (1.0-3.0); HEMOGLOBIN 13.2 g/dL (13.0-17.0); IMMATURE GRAN ABSOLUTE AUTO 0.03 10^3/uL (0.00-0.50); IMMATURE GRAN PERCENT AUTO 0.3 % (0.0-5.0); LYMPHOCYTES ABSOLUTE AUTO 1.25 10^3/uL (1.00-4.00); LYMPHOCYTES PERCENT AUTO 14.5 % (20.0-40.0); MEAN CORPUSCULAR HEMOGLOBIN 31.4 pg (27.0-31.0); MEAN CORPUSCULAR HGB CONC 33.8 g/dL (32.0-36.0); MEAN CORPUSCULAR VOLUME 92.6 fL (82.0-92.0); MEAN PLATELET VOLUME 9.3 fL (7.4-10.4); MONOCYTES ABSOLUTE AUTO 0.73 10^3/uL (0.10-0.80); MONOCYTES PERCENT AUTO 8.5 % (2.0-8.0); NEUTROPHILS ABSOLUTE AUTO 6.44 10^3/uL (2.50-7.00); PLATELET COUNT,PLT 214 10^3/uL (150-400); RED BLOOD CELL COUNT 4.21 10^6/uL (4.50-6.00); RED CELL DISTRIBUTION WIDTH 12.8 % (11.5-14.5)
[2023-01-20] MEDS ORDERED: fentaNYL 100 MCG/2 ML SDV ONE ×2 (20:17→20:21)
[2023-01-20] MEDS ORDERED: fentaNYL 100 MCG/2 ML SDV IVPUSH ONE ×2 (20:19→20:23)
[2023-01-20 20:33] LABS: ALBUMIN 3.73 g/dL (3.40-5.00); BILIRUBIN TOTAL 0.5 mg/dL (0.2-1.0); CALCIUM 9.1 mg/dL (8.7-10.3); CARBON DIOXIDE,CO2 25.6 mmol/L (21.0-32.0); CREATININE 0.86 mg/dL (0.51-1.17); EST CRCL DRUG DOSING (CG) 84.96 mL/min; MAGNESIUM 1.6 mg/dL (1.8-2.4); POTASSIUM,K 3.6 mmol/L (3.5-5.1); PROTEIN TOTAL,TP 6.9 g/dL (6.4-8.2)
[2023-01-20] MEDS ORDERED: Ondansetron 4 MG/2 ML SDV IVPUSH ONE (20:34)
[2023-01-20] MEDS ORDERED: Ondansetron 4 MG/2 ML SDV ONE (20:35)
[2023-01-20] MEDS ORDERED: Magnesium Sulfate/Water 4 GM in Premix Bag 1 BAG IV ONE (20:47)
[2023-01-20] MEDS ORDERED: Ondansetron 4 MG/2 ML SDV IV PRN (22:59)
[2023-01-20] MEDS: Rivaroxaban 10 MG Tab PO SCH (23:25)
[2023-01-21] MEDS: Acetaminophen 325 MG Tab PO PRN ×2 (03:35→21:51)
[2023-01-21 07:35] LABS: BASOPHILS ABSOLUTE AUTO 0.02 10^3/uL (0.00-0.10); BASOPHILS PERCENT AUTO 0.5 % (0.0-1.0); EOSINOPHILS ABSOLUTE AUTO 0.07 10^3/uL (0.10-0.30); EOSINOPHILS PERCENT AUTO 1.8 % (1.0-3.0); HEMATOCRIT 36.9 % (40.0-52.0); IMMATURE GRAN ABSOLUTE AUTO 0.01 10^3/uL (0.00-0.50); IMMATURE GRAN PERCENT AUTO 0.3 % (0.0-5.0); LYMPHOCYTES ABSOLUTE AUTO 1.02 10^3/uL (1.00-4.00); LYMPHOCYTES PERCENT AUTO 26.6 % (20.0-40.0); MEAN CORPUSCULAR HEMOGLOBIN 30.6 pg (27.0-31.0); MEAN CORPUSCULAR HGB CONC 32.5 g/dL (32.0-36.0); MEAN CORPUSCULAR VOLUME 94.1 fL (82.0-92.0); MEAN PLATELET VOLUME 8.7 fL (7.4-10.4); MONOCYTES ABSOLUTE AUTO 0.42 10^3/uL (0.10-0.80); MONOCYTES PERCENT AUTO 10.9 % (2.0-8.0); NEUTROPHILS PERCENT AUTO 59.9 % (50.0-70.0); PLATELET COUNT,PLT 166 10^3/uL (150-400); RED BLOOD CELL COUNT 3.92 10^6/uL (4.50-6.00); WHITE BLOOD CELL COUNT,WBC 3.84 10^3/uL (5.00-10.00)
[2023-01-21 07:52] LABS: ANION GAP 13.1 mmol/L (5-15); CALCIUM 8.6 mg/dL (8.7-10.3); CARBON DIOXIDE,CO2 27.6 mmol/L (21.0-32.0); CREATININE 0.85 mg/dL (0.51-1.17); EST CRCL DRUG DOSING (CG) 85.96 mL/min; POTASSIUM,K 3.7 mmol/L (3.5-5.1)
[2023-01-21] MEDS: Metoprolol Tartrate 50 MG Tab PO SCH ×2 (09:41→21:50)
[2023-01-21] MEDS ORDERED: Rivaroxaban 10 MG Tab PO SCH ×2 (18:00→21:00)
[2023-01-21] MEDS: Rivaroxaban 10 MG Tab PO SCH (18:38)
[2023-01-21] MEDS ORDERED: Rosuvastatin 10 MG Tab PO SCH (21:00)
[2023-01-22 07:43] LABS: ALBUMIN 3.1 g/dL (3.40-5.00); ANION GAP 12.6 mmol/L (5-15); CALCIUM 8.5 mg/dL (8.7-10.3); CARBON DIOXIDE,CO2 26.7 mmol/L (21.0-32.0); CREATININE 0.87 mg/dL (0.51-1.17); EST CRCL DRUG DOSING (CG) 83.98 mL/min; PHOSPHORUS 2.8 mg/dL (2.6-4.7); POTASSIUM,K 4.3 mmol/L (3.5-5.1)
[2023-01-22] MEDS: Metoprolol Tartrate 50 MG Tab PO SCH (08:26)
== END 2023-01-22 13:20 | disposition home or self-care (01) ==
LOC: KA.ED 19:41 → KA.MS 21:26 → UNDOADMOB 21:39 → KA.MS 21:39
PROVIDERS: ADMIT Internal Medicine; ATTEND Internal Medicine
DX: I48.91 Unspecified atrial fibrillation (principal); I11.0 Hypertensive heart disease with heart failure; I50.30 Unspecified diastolic (congestive) heart failure; I25.10 Atherosclerotic heart disease of native coronary artery without angina pectoris; R77.8 Other specified abnormalities of plasma proteins; E78.00 Pure hypercholesterolemia, unspecified; I25.2 Old myocardial infarction; F41.9 Anxiety disorder, unspecified; F32.A Depression, unspecified; M25.511 Pain in right shoulder; G89.29 Other chronic pain; Z79.01 Long term (current) use of anticoagulants; Z79.899 Other long term (current) drug therapy
CPT/HCPCS: 36415; 71045; 80048; 80053; 80069; 83735; 84484; 85025; 92960; 96361; 96365; 96366; 96375; 99223-GT; 99232-GT; 99238-GT; 99291-25; A9270-GY; G0378; J2405; J3010; J3475; J3490; J7030; Q3014

== ENCOUNTER 2023-12-19 18:32 | Emergency (ER) | payer MEDICARE, OTHER ==
[2023-12-19] MEDS: Adenosine 12 MG/4 ML SDV IVPUSH ONE (18:53)
[2023-12-19] MEDS: fentaNYL 100 MCG/2 ML SDV IVPUSH ONE ×3 (19:00→19:07)
[2023-12-19] MEDS: Midazolam 1 MG/ML 2 ML SDV IVPUSH ONE ×2 (19:00→19:06)
[2023-12-19] MEDS ORDERED: fentaNYL 100 MCG/2 ML SDV IVPUSH ONE (19:03)
[2023-12-19 19:07] LABS: BASOPHILS ABSOLUTE AUTO 0.04 10^3/uL (0.00-0.10); BASOPHILS PERCENT AUTO 0.6 % (0.0-1.0); EOSINOPHILS PERCENT AUTO 1.5 % (1.0-3.0); HEMATOCRIT 38.8 % (40.0-52.0); HEMOGLOBIN 13.3 g/dL (13.0-17.0); IMMATURE GRAN ABSOLUTE AUTO 0.03 10^3/uL (0.00-0.50); IMMATURE GRAN PERCENT AUTO 0.4 % (0.0-5.0); LYMPHOCYTES ABSOLUTE AUTO 1.21 10^3/uL (1.00-4.00); LYMPHOCYTES PERCENT AUTO 17.8 % (20.0-40.0); MEAN CORPUSCULAR HEMOGLOBIN 31.5 pg (27.0-31.0); MEAN CORPUSCULAR HGB CONC 34.3 g/dL (32.0-36.0); MEAN CORPUSCULAR VOLUME 91.9 fL (82.0-92.0); MEAN PLATELET VOLUME 9.2 fL (7.4-10.4); MONOCYTES ABSOLUTE AUTO 0.65 10^3/uL (0.10-0.80); MONOCYTES PERCENT AUTO 9.6 % (2.0-8.0); NEUTROPHILS ABSOLUTE AUTO 4.75 10^3/uL (2.50-7.00); NEUTROPHILS PERCENT AUTO 70.1 % (50.0-70.0); PLATELET COUNT,PLT 218 10^3/uL (150-400); RED BLOOD CELL COUNT 4.22 10^6/uL (4.50-6.00); RED CELL DISTRIBUTION WIDTH 12.7 % (11.5-14.5); WHITE BLOOD CELL COUNT,WBC 6.78 10^3/uL (5.00-10.00)
[2023-12-19 19:12] LABS: ALANINE AMINOTRANSFERASE,ALT 37 U/L (14-63); ALBUMIN 3.52 g/dL (3.40-5.00); ALKALINE PHOSPHATASE 85 U/L (46-116); ANION GAP 18.7 mmol/L (5-15); ASPARTATE AMNIOTRANSFERASE,AST 43 U/L (15-37); BILIRUBIN TOTAL 0.8 mg/dL (0.2-1.0); BLOOD UREA NITROGEN,BUN 19 mg/dL (7-18); CALCIUM 9.2 mg/dL (8.7-10.3); CARBON DIOXIDE,CO2 22.8 mmol/L (21.0-32.0); CHLORIDE,CL 105 mmol/L (98-107); CREATININE 1.15 mg/dL (0.51-1.17); ESTIMATED GFR 66 mL/min (>=60); GLUCOSE RANDOM 118 mg/dL (70-140); POTASSIUM,K 3.5 mmol/L (3.5-5.1); PROTEIN TOTAL,TP 6.8 g/dL (6.4-8.2); SODIUM,NA 143 mmol/L (136-145)
[2023-12-19] MEDS: EPINEPHrine 1:10,000 1 MG/10 ML Syringe IVPUSH ONE (19:17)
[2023-12-19 19:20] LABS: PROTHROMBIN TIME 11.1 SEC (9.3-12.2)
[2023-12-19] MEDS: Amiodarone/Dextrose,Iso-Osmotic 150 MG/100 ML Premix Bag IV ONE (19:29)
[2023-12-19] MEDS: Amiodarone In Dextrose,Iso-Osm 360 MG in Premix Bag 1 BAG IV SCH (19:45)
[2023-12-19] MEDS: Ondansetron 4 MG/2 ML SDV ONE (20:02)
[2023-12-19] MEDS: Ondansetron 4 MG/2 ML SDV IVPUSH ONE (20:04)
[2023-12-19] MEDS: Sodium Chloride 0.9% 1,000 ML IV SCH (20:31)
[2023-12-19] MEDS: Morphine 2 MG/ML SYRINGE ONE (20:39)
[2023-12-19] MEDS: Metoclopramide 10 MG/2 ML SDV ONE (20:40)
[2023-12-19] MEDS: Morphine 2 MG/ML SYRINGE IVPUSH ONE (20:42)
[2023-12-19] MEDS: Metoclopramide 10 MG/2 ML SDV IVPUSH ONE (20:42)
[2023-12-19] MEDS: Sodium Chloride 0.9% 1,000 ML ONE (21:01)
[2023-12-20] MEDS: fentaNYL 100 MCG/2 ML SDV ONE (12:41)
[2023-12-20] MEDS: Midazolam 1 MG/ML 2 ML SDV ONE ×2 (12:41)
== END 2023-12-19 20:55 ==
LOC: KA.ED 18:32
DX: I46.9 Cardiac arrest, cause unspecified (principal); R00.0 Tachycardia, unspecified; I48.91 Unspecified atrial fibrillation; I11.0 Hypertensive heart disease with heart failure; I50.9 Heart failure, unspecified; E78.00 Pure hypercholesterolemia, unspecified; I25.2 Old myocardial infarction; Z79.01 Long term (current) use of anticoagulants; Z79.899 Other long term (current) drug therapy
CPT/HCPCS: 51702; 71045; 80053; 84484; 85025; 85610; 92950; 92960; 93005; 93010; 96365; 96375; 96376; 99284; 99291-25; 99292; J0153; J0171; J0282; J2250; J2270; J2405; J2765; J3010; J7030; Q3014

== ENCOUNTER 2024-02-22 09:23 | Day surgery (SDC) | payer MEDICARE, OTHER ==
[2024-02-22] MEDS ORDERED: Sodium Chloride 0.9% 10 ML Syringe FLUSH PRN (09:30)
[2024-02-22] MEDS: Lactated Ringers 1,000 ML IV SCH (09:31)
[2024-02-22] MEDS ORDERED: Midazolam 1 MG/ML 2 ML SDV ONE (09:59)
[2024-02-22] MEDS ORDERED: Propofol 200 MG/20 ML SDV ONE (09:59)
[2024-02-22] MEDS ORDERED: Lidocaine 2% 100 MG/5 ML Syringe ONE (10:00)
[2024-02-22] MEDS ORDERED: Glycopyrrolate 0.2 MG/ML SDV ONE (10:00)
[2024-02-22] MEDS ORDERED: Lactated Ringers 1,000 ML ONE (11:16)
[2024-02-22 13:52] VITALS: BP 149/77; PULSE 69
== END 2024-02-22 13:25 | disposition home or self-care (01) ==
LOC: KA.SDS 09:23
PROVIDERS: ATTEND Family Medicine
DX: K29.50 Unspecified chronic gastritis without bleeding (principal); D64.9 Anemia, unspecified; I48.91 Unspecified atrial fibrillation; Z79.01 Long term (current) use of anticoagulants; Z79.899 Other long term (current) drug therapy
CPT/HCPCS: 00731; J1596; J2250; J2704; J3490; J7120

== ENCOUNTER 2024-05-03 01:04 | Emergency (ER) | payer MEDICARE, OTHER ==
[2024-05-03] MEDS: Tetracaine HCl/PF 0.5% 4 ML Bottle EYEBOTH ONE (01:25)
[2024-05-03] MEDS: Fluorescein 1 MG Ophth Strip EYELF ONE (01:35)
[2024-05-03] MEDS: Erythromycin Base 0.5% Ophth Oint 3.5 GM Tube EYELF ONE (01:50)
== END 2024-05-03 02:00 | disposition home or self-care (01) ==
LOC: KA.ED 01:04
DX: T15.02XA Foreign body in cornea, left eye, initial encounter (principal); I11.0 Hypertensive heart disease with heart failure; I50.9 Heart failure, unspecified; I48.91 Unspecified atrial fibrillation; E78.00 Pure hypercholesterolemia, unspecified; Z90.49 Acquired absence of other specified parts of digestive tract; Z79.899 Other long term (current) drug therapy; Z79.01 Long term (current) use of anticoagulants; W44.9XXA Unspecified foreign body entering into or through a natural orifice, initial encounter
CPT/HCPCS: 99283; A9270-GY; J3490

== ENCOUNTER 2025-02-09 18:35 | Emergency (ER) | payer MEDICARE, OTHER | END 2025-02-09 20:00 | disposition home or self-care (01) | LOC: KA.ED 18:35 | DX: M25.511 Pain in right shoulder (principal); I11.0 Hypertensive heart disease with heart failure; I50.9 Heart failure, unspecified; I48.91 Unspecified atrial fibrillation; Z90.49 Acquired absence of other specified parts of digestive tract; Z79.899 Other long term (current) drug therapy | CPT/HCPCS: 73030; 99283; A9270 ==